=== PATIENT | male | born 1990 | race Caucasian/White ===

== ENCOUNTER 2017-12-21 15:37 | Emergency (ER) | payer OTHER, SELFPAY ==
--- NOTE | 2017-12-21 17:17 | CT ---
CT ABDOMEN AND PELVIS: 12/21/2017 TECHNIQUE: A spiral CT of the abdomen and pelvis was performed for evaluation following trauma. Axial slices we re acquired, and then coronal and sagittal reconstructions were done. FINDINGS: The lung bases are clear. The liver, spleen, pancreas, adrenal glands, kidneys, gallbladder, and abd ominal aorta all appear normal. There is no sign of laceration or hematoma to any major organ. The bowel shows no distention. There is no free air or free fluid. CT of the pelvis shows no masses, fluid collections, or bleeding. The lumbar spine and bony pelvis a ppear normal. IMPRESSION: No acute traumatic findings. POS: HOME
--- NOTE | 2017-12-21 23:42 | RAD ---
CHEST TWO VIEWS: 12/21/2017 FINDINGS: The heart is normal in size. The mediastinum is normal in width and shows no shift. The trachea is midline. The lung are fully inflated and clear. There is no sign of a pneumothorax, pleural effusio n, or parenchymal infiltrate. No fractures are appreciated. IMPRESSION: No acute thoracic findings. POS: HOME
== END 2017-12-21 17:03 | disposition home or self-care (01) ==
LOC: BURERS 15:37
DX: S61.215A Laceration without foreign body of left ring finger without damage to nail, initial encounter (principal); V89.2XXA Person injured in unspecified motor-vehicle accident, traffic, initial encounter; W22.10XA Striking against or struck by unspecified automobile airbag, initial encounter
CPT/HCPCS: 12002; 71046; 74177